=== PATIENT | male | born 1955 | race Caucasian/White ===

== ENCOUNTER 2019-04-14 12:43 | Outpatient (CLI) | payer OTHER, SELFPAY ==
--- NOTE | ~2019-04-14 | MR_ITS ---
EXAMINATION: MR shoulder LT wo con DATE: 04/14/2019 13:33 INDICATION: Anterior left shoulder pain post fall 6 weeks prior. TECHNIQUE: Magnetic resonance imaging (MRI) of the left shoulder was performed without intravenous co ntrast. Sequences included axial PD-weighted FS FSE, coronal oblique PD-weighted FS FSE, coronal obli que T2-weighted FS FSE, sagittal PD-weighted FS FSE, and sagittal T1-weighted SE. COMPARISON: None. FINDINGS: Coracoacromial arch: The acromion undersurface is curved in morphology (type II). Small subacromial spurs along the latera l margin of the acromion. The coracoacromial ligament is normal. Severe acromioclavicular osteoarthri tis. Rotator cuff: Mild tendinopathy without discrete tear of supraspinatus, infraspinatus and distal subscapularis tend ons. The teres minor tendon appears normal however there is essentially complete fatty atrophy of the teres minor muscle belly. Biceps tendon, glenoid labrum and glenohumeral cartilage: Long head of the biceps tendon appears intact.. Advanced glenohumeral osteoarthritis with extensive f ull/near full-thickness cartilage loss and remodeling of the articular surfaces with extensive subart icular cystic changes at both sides of the joint space. Prominent marginal osteophytes are present al john the anterosuperior glenoid and along the anterior and posterior margin of the humeral head. Diffu se tearing of the glenoid labrum with macerated appearance along much of the inferior and posterior l abrum. Fluid: Physiologic amount of fluid in the glenohumeral joint and biceps tendon sheath. No loose osteochondra l bodies. Small amount of fluid in the subacromial/subdeltoid bursa consistent with mild bursitis. Sm all acromioclavicular joint effusion. Bones: There is prominent marrow edema at the lateral head of the clavicle and to lesser degree at the acrom ion with surrounding soft tissue edema at this appears more prominent than expected solely for reacti ve edema related to the osteoarthritis raising the possibility of either an inflammatory arthritis or sequela of trauma. No fracture line identified however given the history of recent trauma this could be related to either bone contusion or distal clavicular osteolysis. Advanced glenohumeral osteoarth ritis as previously detailed. IMPRESSION: 1. Prominent marrow edema at the lateral head of the clavicle which given history of prior trauma cou ld be related to bone contusion or distal clavicular osteolysis. Differential would include reactive edema related to the severe acromioclavicular osteoarthritis or less likely other inflammatory arthri tis. 2. Advanced glenohumeral osteoarthritis with diffuse labral tear/degeneration. 3. Mild rotator cuff tendinopathy without discrete tear. 4. Severe chronic fatty atrophy of the teres minor muscle belly of indeterminate etiology. Reviewed, dictated and finalized at location A. OL LEADER IMPRESSION: 1. Prominent marrow edema at the lateral head of the clavicle which given histo ry of prior trauma could be related to bone contusion or distal clavicular oste olysis. Differential would include reactive edema related to the severe acromio clavicular osteoarthritis or less likely other inflammatory arthritis. 2. Advanced glenohumeral osteoarthritis with diffuse labral tear/degeneration. 3. Mild rotator cuff tendinopathy without discrete tear. 4. Severe chronic fatty atrophy of the teres minor muscle belly of indeterminat e etiology.
== END 2019-04-14 12:44 | disposition home or self-care (01) ==
LOC: CHSIMG 12:46
PROVIDERS: PCP Family Medicine; Visit Provider Family Medicine
DX: M75.102 Unspecified rotator cuff tear or rupture of left shoulder, not specified as traumatic (principal)
CPT/HCPCS: 73221

== ENCOUNTER 2020-12-07 13:08 | Outpatient (CLI) | payer OTHER, SELFPAY ==
--- NOTE | ~2020-12-07 | XR_ITS ---
XR chest 2V DATE: 12/07/2020 13:36 INDICATION: Covid 19 pneumonia TECHNIQUE: PA and lateral views COMPARISON: 10/19/2018 CT thorax FINDINGS: Normal heart size. No hilar or mediastinal enlargement. There are patchy infiltrates in the right mid and lower lung zones. No pleural effusion or pulmonary vascular congestion or pneumothorax is detected. Diffuse osteopenia. IMPRESSION: Patchy right mid and lower lung infiltrates Reviewed, dictated and finalized at location B.
== END 2020-12-07 13:09 | disposition home or self-care (01) ==
LOC: CHSIMG 13:12
PROVIDERS: PCP Family Medicine; Visit Provider Family Medicine
DX: U07.1 COVID-19 (principal)
CPT/HCPCS: 71046

== ENCOUNTER 2021-05-01 09:29 | Outpatient (CLI) | payer OTHER, SELFPAY ==
[2021-05-01 11:04] LABS: SARS-CoV-2 RNA PCR Negative (Negative)
== END 2021-05-01 09:30 | disposition home or self-care (01) ==
LOC: CHSLAB 09:32
PROVIDERS: PCP Family Medicine; Visit Provider Family Medicine
DX: Z01.818 Encounter for other preprocedural examination (principal); Z20.822 Contact with and (suspected) exposure to COVID-19
CPT/HCPCS: C9803; U0003; U0005

== ENCOUNTER 2021-05-18 08:35 | Outpatient (CLI) | payer OTHER, SELFPAY ==
--- NOTE | ~2021-05-18 | CT_ITS ---
EXAMINATION: CT lung screening DATE: 05/18/2021 09:02 INDICATION: Personal history of nicotine dependence, prior smoker with 40 pack year history TECHNIQUE: Computed tomography (CT) of the chest was performed without intravenous contrast. The dose -length product (DLP) was 281.55 mGy-cm. 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 COMPARISON: 10/19/2018 FINDINGS: There is a stable 2 mm nodule of the right middle lobe. The lungs are free of acute opaciti es. There is no pleural effusion or pneumothorax. No pathologically enlarged thoracic lymph nodes are identified. The heart size is normal. There is calcified coronary artery atherosclerosis. Subendocar dial fat deposition in the heart is consistent with prior myocardial infarction. There is a moderate- sized hiatal hernia. There is moderate thoracic spondylosis. IMPRESSION: 1. Lung-RADS category 2: Benign appearance or behavior. Continue annual screening with noncontrast lo w-dose chest CT in 12 months. Reviewed, dictated and finalized at location B. IMPRESSION: 1. Lung-RADS category 2: Benign appearance or behavior. Continue annual screeni ng with noncontrast low-dose chest CT in 12 months.
== END 2021-05-18 08:36 | disposition home or self-care (01) ==
LOC: CHSIMG 08:36
PROVIDERS: PCP Family Medicine; Visit Provider Family Medicine
DX: Z12.2 Encounter for screening for malignant neoplasm of respiratory organs (principal); Z87.891 Personal history of nicotine dependence
CPT/HCPCS: 71271

== ENCOUNTER 2023-11-25 11:24 | Outpatient (CLI) | payer MEDICARE, MEDICAID, SELFPAY ==
--- NOTE | ~2023-11-25 | XR_ITS ---
XR finger 3rd LT min 2V Ordering provider: Hollis Carbajal MD History: . LT 3rd swelling/red/nail discoloration, HX prostate/bone CA . Comparison: None. FINDINGS: BONES: No acute fracture or dislocation. No evidence of osteomyelitis. Lucency seen laterally at the base of the distal phalanx which is most likely summation shadow. JOINT SPACES: Normal. SOFT TISSUES: Normal. IMPRESSION: No acute osseous abnormality. Reviewed, dictated and finalized at location A.
== END 2023-11-25 11:25 | disposition home or self-care (01) ==
PROVIDERS: PCP Family Medicine; Visit Provider Family Medicine
DX: L03.012 Cellulitis of left finger (principal)
CPT/HCPCS: 73140

== ENCOUNTER 2024-02-27 14:37 | Emergency (ER) | payer MEDICARE, SELFPAY ==
--- NOTE | 2024-02-27 14:42 | ED.WOUNDLAC ---
HPI - Wound/Laceration General Chief Complaint: Wound/Laceration Stated Complaint: FALL Time Seen by Provider: 02/27/24 14:40 Source: patient Mode of arrival: ambulatory Limitations: no limitations History of Present Illness HPI narrative: Patient is a 68-year-old male with a posterior scalp laceration after a fall. Patient had a mechanical fall accident. There were no symptoms before the event it causing the fall. bleeding is controlled. Tetanus shot not up-to-date. No loss of consciousness. No blood thinners. Onset (ago): minute(s) (30) Location: scalp ( Occipital area) Place: home Patient tetanus UTD: No Context: accidental Associated symptoms: none Treatments prior to arrival: bandage Related Data Allergies Allergy/AdvReac Type Severity Reaction Status Date / Time No Known Allergies Allergy Verified 02/27/24 14:51 Review of Systems Review of Systems: All systems reviewed & are unremarkable except as noted in HPI and below Constitutional: Constitutional: Reports no additional constitutional complaints Eyes: Eyes: Reports no additional eye complaints ENT: Reports system reviewed and no additional complaints, except as documented Cardiovascular: Cardiovascular: Reports no additional cardiovascular complaints Respiratory: Respiratory: Reports no additional respiratory complaints Gastrointestinal: Gastrointestinal: Reports no additional gastrointestinal complaints Genitourinary: Genitourinary: Reports no additional male genitourinary complaints Musculoskeletal: Musculoskeletal: Reports no additional musculoskeletal complaints Integumentary/Breasts: Skin/Breast: Reports system reviewed and no additional complaints, except as docu Neurologic: Reports system reviewed and no additional complaints, except as documented Psychiatric: Psychiatric: Reports no additional psychiatric complaints Endocrine: Endocrine: Reports no additional endocrine complaints Hematologic/Lymphatic: Hematologic/Lymphatic: Reports no additional hematologic/lymphatic complaints Allergic/Immunologic: Allergic/Immunologic: Reports no additional allergic/immunologic complaints Exam Const: General: healthy appearing Nutritional Appearance: well nourished Orientation/consciousness: patient oriented x3 Limitations: no limitations HENMT: Head: normal to inspection Ears: external ears normal Face/Nose/Sinus: Normal external nose present Eyes: Conjunctivae: conjunctivae normal Pupils: Equal, round and reactive pupils present EOM: EOMs intact bilaterally Neck: Neck: normal visual inspection Chest: Chest palpation & inspection: normal inspection of the chest Resp: Effort & Inspection: normal respiratory effort and not labored Auscultation: clear to auscultation bilaterally and no crackles Cardio: Rate: regular rate Rhythm: regular rhythm Heart sounds: no murmurs GI: Inspection: non-distended GI Palp: Yes Soft to palpation and No Tenderness to palpation present (GI) Auscultation: normal bowel sounds Back/Spine/Pelvis: Back: no CVA tenderness Skin: General skin exam: normal color Rashes: no rashes Wounds: wound noted and wounds noted Other: posterior and occipital scalp has a 2.5 cm linear laceration without bleeding or infection Neuro: General: patient oriented x3 Cranial nerves: Yes Nystagmus not present Speech: normal speech Gait exam (Neuro): Normal gait present Extrem: General: normal to inspection Psych: Mental Status: mental status grossly normal Affect: normal affect Attitude: cooperative Course Vital Signs Vital signs: Vital Signs Temperature 36.6 C 02/27/24 14:46 Pulse Rate 92 02/27/24 14:46 Respiratory Rate 02/27/24 14:46 Blood Pressure 140/93 H 02/27/24 14:46 Pulse Oximetry 95 02/27/24 14:46 Oxygen Delivery Room Air 02/27/24 14:46 Temperature 36.6 C 02/27/24 14:46 Pulse Rate 92 02/27/24 14:46 Respiratory Rate 20 02/27/24 14:46 Blood Pressure 140/93 H 02/27/24 14:46 Pulse Oximetry 95 02/27/24 14:46 Oxygen Delivery Room Air 02/27/24 14:46 Procedures Other Procedure Procedure 1: Other Procedure: Posterior occipital scalp as a 2.5 cm linear laceration without bleeding or infection; area was cleaned with chlorhexidine; x6 femi placed; area cleaned and antibiotic lately it placed on top MDM - Wound/Laceration MDM Narrative Medical decision making narrative: patient is a 68-year-old male with a posterior scalp laceration after mechanical fall. He will need a tetanus shot and femi. Discharge Plan Discharge Clinical Impression: Closed head injury Qualifiers: Encounter type: initial encounter Qualified Code(s): S09.90XA - Unspecified injury of head, initial encounter Laceration of scalp Qualifiers: Encounter type: initial encounter Qualified Code(s): S01.01XA - Laceration without foreign body of scalp, initial encounter Patient Disposition: Home, Self-Care Condition: Stable Instructions: Head Injury (ED), Staple Care (ED) Additional Instructions: please follow-up with the primary doctor in the next week. You will have the femi to remove in 7-10 days. Mantoloking can be removed in the emergency room or with primary doctor. Patient Language: [place] Citizen Follow-up/Referrals: UNKNOWN,DOCTOR [Non-Staff] - Time of Disposition: 15:04
[2024-02-27 14:46] VITALS: BP 140/93; PULSE 92; RESP 20; TEMP 36.6; O2SAT 95
[2024-02-27] MEDS: TETANUS,DIPHTHERIA,AC PERTUSSIS ADULT 0.5 ML (ADACEL) IM (15:13)
== END 2024-02-27 15:45 | disposition home or self-care (01) ==
LOC: CHSED 15:27
PROVIDERS: Emergency Provider Emergency Medicine; PCP Family Medicine
DX: S01.01XA Laceration without foreign body of scalp, initial encounter (principal); S09.90XA Unspecified injury of head, initial encounter; W19.XXXA Unspecified fall, initial encounter; Z23 Encounter for immunization
CPT/HCPCS: 12001; 90471; 90715; 99283

== ENCOUNTER 2024-03-08 11:29 | Emergency (ER) | payer MEDICARE, MEDICAID, SELFPAY ==
[2024-03-08 11:32] VITALS: BP 109/76; PULSE 92; RESP 18; TEMP 36.6; O2SAT 95
--- NOTE | 2024-03-08 11:36 | ED.GENADULT ---
HPI - General Adult General Chief complaint: Unspecified Stated complaint: staple removal Time Seen by Provider: 03/08/24 11:36 History of Present Illness HPI narrative: Pt here for staple removal. Area well healed no issues. Related Data Home Medications ?Medication ?Instructions ?Recorded ?Confirmed ?Last Taken ?Type Unable to Obtain Home Medications 03/08/24 03/08/24 Unknown History Allergies Allergy/AdvReac Type Severity Reaction Status Date / Time No Known Allergies Allergy Verified 03/08/24 11:30 Review of Systems Review of Systems: All systems reviewed & are unremarkable except as noted in HPI and below Exam Const: General: cooperative, healthy appearing and no acute distress HENMT: Head: other (well healed laceration with [address] no signs of infection/) Course Vital Signs Vital signs: Vital Signs Temperature 97.9 F 03/08/24 11:32 Pulse Rate 92 03/08/24 11:32 Respiratory Rate 18 03/08/24 11:32 Blood Pressure 109/76 03/08/24 11:32 Pulse Oximetry 95 03/08/24 11:32 Oxygen Delivery Room Air 03/08/24 11:32 Temperature 97.9 F 03/08/24 11:32 Pulse Rate 92 03/08/24 11:32 Respiratory Rate 18 03/08/24 11:32 Blood Pressure 109/76 03/08/24 11:32 Pulse Oximetry 95 03/08/24 11:32 Oxygen Delivery Room Air 03/08/24 11:32 Procedures Other Procedure Procedure 1: Other Procedure: 6 femi removed using staple removal. no complications. tolerated well. Medical Decision Making Vital Signs Vital Signs: Vital Signs Temperature 97.9 F 03/08/24 11:32 Pulse Rate 92 03/08/24 11:32 Respiratory Rate 18 03/08/24 11:32 Blood Pressure 109/76 03/08/24 11:32 Pulse Oximetry 95 03/08/24 11:32 Oxygen Delivery Room Air 03/08/24 11:32 Temperature 97.9 F 03/08/24 11:32 Pulse Rate 92 03/08/24 11:32 Respiratory Rate 18 03/08/24 11:32 Blood Pressure 109/76 03/08/24 11:32 Pulse Oximetry 95 03/08/24 11:32 Oxygen Delivery Room Air 03/08/24 11:32 Discharge Plan Discharge Clinical Impression: Removal of femi Patient Disposition: Home, Self-Care Condition: Improved Instructions: Antibiotic Form, Wound Infection (DC) Patient Language: [place] Prescriptions: No Action Unable to Obtain Home Medications Follow-up/Referrals: Hollis Carbajal MD [Primary Care Provider] -
[2024-03-08 11:43] VITALS: BP 109/76; PULSE 92; RESP 18; TEMP 36.6; O2SAT 95
== END 2024-03-08 11:43 | disposition home or self-care (01) ==
PROVIDERS: Emergency Provider Emergency Medicine; PCP Family Medicine
DX: Z48.02 Encounter for removal of sutures (principal)
CPT/HCPCS: 15853; 99282

== ENCOUNTER 2024-12-02 13:12 | Outpatient (CLI) | payer MEDICARE, MEDICAID, SELFPAY ==
--- NOTE | ~2024-12-02 | CT_ITS ---
EXAMINATION:CT lung screening DATE: 12/02/2024 13:25 INDICATION: Personal history of nicotine dependence. TECHNIQUE: Computed tomography (CT) of the chest was performed without intravenous contrast. Automated exposure control and iterative reconstruction technique were employed. The dose-length product (DLP) was 166.15 mGy-cm. COMPARISON: Chest CT 05/18/2021 FINDINGS: There is mild emphysema. There is mild atelectasis bilaterally. Calcified left lung nodules are consistent with old granulomatous disease. No pleural effusion. The heart size is normal. There are coronary artery calcifications. No pericardial effusion. The central pulmonaries are enlarged, consistent with pulmonary arterial hypertension. There is a moderate-sized sliding hiatal hernia. There are widespread scattered sclerotic lesions of bone. There are chronic compression fractures of T1 and T9. There are multiple old left rib fractures. IMPRESSION: 1. Lung-RADS category 1S: Negative. 2. Widespread bone lesions, consistent with metastatic disease. Reviewed, dictated and finalized at location E.
== END 2024-12-02 13:13 | disposition home or self-care (01) ==
LOC: CHSIMG 13:14
PROVIDERS: PCP Family Medicine; Visit Provider Nurse Practitioner Family
DX: Z12.2 Encounter for screening for malignant neoplasm of respiratory organs (principal); Z87.891 Personal history of nicotine dependence; M89.9 Disorder of bone, unspecified
CPT/HCPCS: 71271